=== PATIENT | male | born 1940 | race Caucasian/White ===

== ENCOUNTER 2016-08-17 19:54 | Emergency (ER) | payer MEDICARE ==
[~2016-08-17] VITALS: Ht 182.9 cm; Wt 109.0 kg
[2016-08-17 20:00] VITALS: BP 137/70; PULSE 73; RESP 16; TEMP 97.8; O2SAT 95
[2016-08-17 20:07] VITALS: BP 137/70; PULSE 73; RESP 16; TEMP 97.8; O2SAT 95
[2016-08-17] MEDS ORDERED: LOSA100T PO (20:15)
[2016-08-17] MEDS ORDERED: SIMV20TA PO (20:15)
[2016-08-17] MEDS ORDERED: HYDR25TA5 PO (20:15)
[2016-08-17] MEDS ORDERED: METO50TA PO (20:16)
[2016-08-17] MEDS ORDERED: AMLO5TAB2 PO (20:16)
[2016-08-17] MEDS ORDERED: MORPHINE SULFATE 4 MG/ML INJ IM ONE (20:45)
--- NOTE | 2016-08-17 20:45 | PD ---
HPI Chief Complaint: Musculoskeletal Complaint Time Seen by Provider: 20:45 Travel History International Travel<30 days: No Contact w/Intl Traveler<30days: No Traveled to known affect area: No History of Present Illness HPI Patient is a 76-year-old male presenting with chief complaint of right shoulder and right elbow pain. Possible 5 hours prior to exam the patient slipped and fell while in the shower. She landed on her side on his shoulder has had pain and swelling in the elbow and pain in the shoulder anteriorly since. Pain is worse with movement. He denies severely limited range of motion but does hurt use or move. He denies hitting his head or loss of consciousness. He denies headache, dizziness, syncope, neck pain. He has some intermittent paresthesias in his fingers but denies weakness or sensation loss. He is on aspirin 81 mg daily but denies anticoagulant use. His intermittent low back pain since falling in the midline. He denies any abdominal pain, bowel or bladder dysfunction, saddle anesthesia or weakness or paresthesias in his legs. No attempts at palliation. PFSH Past Medical History Cardiovascular Problems: Yes (2 stents) Diminished Hearing: No Hypertension: Yes Tetanus Vaccination: Never Vaccinated Influenza Vaccination: Yes Social History Alcohol Use: No Tobacco Use: No Substance Use: No Allergies-Medications (Allergen,Severity, Reaction): Coded Allergies: No Known Allergies (Unverified , 08/17/16) Reported Meds & Prescriptions Reported Meds & Active Scripts Active Lortab (Hydrocodone-Acetaminophen) 5-325 Mg Tab 1-2 Tab PO Q6H PRN Reported Metoprolol Tartrate 50 Mg Tab 50 Mg PO DAILY Amlodipine (Amlodipine Besylate) 5 Mg Tab 5 Mg PO DAILY Hydrochlorothiazide 25 Mg Tab 25 Mg PO DAILY Losartan (Losartan Potassium) 100 Mg Tab 100 Mg PO DAILY Simvastatin 20 Mg Tab 20 Mg PO DAILY Review of Systems Except as stated in HPI: all other systems reviewed are Neg Physical Exam Narrative GENERAL: Well-developed and well-nourished adult male in no acute distress. SKIN: Warm and dry. Good turgor without tenting. HEAD: Normocephalic and atraumatic. EYES: PERRL bilaterally, 5mm. EOMI bilaterally. No injection or icterus present. No proptosis. Lids without edema or erythema. ENT: Buccal mucosa pink and moist. Oropharynx free of erythema, tonsillar hypertrophy, masses, swelling, asymmetry and exudates. Uvula midline and airway patent. NECK: Supple, no midline tenderness, crepitus or step-offs. Trachea midline, no JVD. No cervical or facial lymphadenopathy. CARDIOVASCULAR: Regular rate and rhythm without murmurs, rubs, clicks or gallops. Radial and posterior tibial pulses 2+ bilaterally. Brisk capillary refill less than 3 seconds distal tip of all fingers of right hand, equal in time when compared to the left. No pedal edema. RESPIRATORY: Clear to auscultation bilaterally with symmetrical rise and fall, no distress or use of accessory muscles. GASTROINTESTINAL: Non-tender, non-distended. Normal bowel sounds all 4 quadrants. No masses or organomegaly present. MUSCULOSKELETAL: Patient is pain palpation of the right shoulder near the acromioclavicular joint. No clavicle or sternoclavicular tenderness. Lightly reduced range of motion secondary to pain. No increased laxity or squaring off. Right elbow has tenderness in the lateral aspect with a large 7 cm hematoma proximal forearm swelling. Tenderness over the olecranon as well. Patient is moving the elbow with minimal pain however. Normal range of motion of bilateral wrists hands and fingers. Palpation of the mid to low lumbar spine has tenderness without crepitus or step-offs. No sacral tenderness. No crepitus or thrills palpation. Patient freely moving all four extremities spontaneously. Extremities without clubbing, cyanosis, or edema. No obvious deformities. NEUROLOGIC: CN II-XII grossly intact. Awake and alert. Strength 5/5 bilateral shoulder flexion, shoulder extension, elbow flexion, elbow extension. Sensation intact and strength 5/5 over radial, median, and ulnar nerve distributions bilaterally.Sensation intact L2-S2 bilaterally. Strength 5/5 in hip flexion, hip extension, knee flexion, knee extension, plantar flexion, dorsiflexion bilaterally. Bilateral patellar and Achilles DTRs 2+. Downgoing Babinskis bilaterally. Normal speech. PSYCHIATRIC: Appropriate mood and affect; insight and judgment normal. Data Data Last Documented VS Vital Signs Date Time Temp Pulse Resp B/P Pulse Ox O2 Delivery O2 Flow Rate FiO2 08/18/16 00:16 73 18 132/68 96 08/17/16 20:07 97.8 Orders Elbow, Complete (4 Vws) (08/17/16 20:43) Shoulder, Complete (>2vws) (08/17/16 20:43) Ice/Cold Pack (08/17/16 20:43) Spine, Lumbar Comp W/Obliq (08/17/16 ) Morphine Inj (Morphine Inj) (08/17/16 20:45) Ct Thorax/ Chest Wo Iv Contras (08/17/16 ) Morphine Inj (Morphine Inj) (08/17/16 22:15) Complete Blood Count With Diff (08/17/16 22:14) Comprehensive Metabolic Panel (08/17/16 22:14) Prothrombin Time / Inr (Pt) (08/17/16 22:14) Act Partial Throm Time (Ptt) (08/17/16 22:14) Iv Access Insert/Monitor (08/17/16 22:35) Splint Or Brace Apply/Monitor (08/17/16 23:38) Labs Laboratory Tests Test 08/17/16 22:15 White Blood Count 11.6 TH/MM3 Red Blood Count 4.53 MIL/MM3 Hemoglobin 13.7 GM/DL Hematocrit 40.5 % Mean Corpuscular Volume 89.3 FL Mean Corpuscular Hemoglobin 30.3 PG Mean Corpuscular Hemoglobin 33.9 % Concent Red Cell Distribution Width 11.9 % Platelet Count 283 TH/MM3 Mean Platelet Volume 7.3 FL Neutrophils (%) (Auto) 63.0 % Lymphocytes (%) (Auto) 18.2 % Monocytes (%) (Auto) 11.0 % Eosinophils (%) (Auto) 6.9 % Basophils (%) (Auto) 0.9 % Neutrophils # (Auto) 7.3 TH/MM3 Lymphocytes # (Auto) 2.1 TH/MM3 Monocytes # (Auto) 1.3 TH/MM3 Eosinophils # (Auto) 0.8 TH/MM3 Basophils # (Auto) 0.1 TH/MM3 CBC Comment DIFF FINAL Differential Comment Prothrombin Time 10.0 SEC Prothromb Time International 0.9 RATIO Ratio Activated Partial 24.3 SEC Thromboplast Time Sodium Level 142 MEQ/L Potassium Level 3.9 MEQ/L Chloride Level 104 MEQ/L Carbon Dioxide Level 29.8 MEQ/L Anion Gap 8 MEQ/L Blood Urea Nitrogen 33 MG/DL Creatinine 1.50 MG/DL Estimat Glomerular Filtration 46 ML/MIN Rate Random Glucose 130 MG/DL Calcium Level 8.8 MG/DL Total Bilirubin 0.5 MG/DL Aspartate Amino Transf 17 U/L (AST/SGOT) Alanine Aminotransferase 27 U/L (ALT/SGPT) Alkaline Phosphatase 52 U/L Total Protein 6.4 GM/DL Albumin 3.5 GM/DL MDM Medical Decision Making Medical Screen Exam Complete: Yes Emergency Medical Condition: Yes Differential Diagnosis Elbow fracture versus hematoma versus compartment syndrome versus elbow sprain versus contusion versus shoulder sprain versus shoulder fracture versus shoulder dislocation versus lumbar fracture versus low-back strain Narrative Course Patient is a 76-year-old male had a mechanical fall 5 hours prior with right shoulder, elbow and low back pain. The right elbow has a large hematoma and proximal forearm swelling. He has some paresthesias in the fingers intermittently but is neurovascularly intact. Capillary refill is brisk and equal to the left upper extremity. Patient was given ice, morphine ordered x- ray of the shoulder, elbow and lumbar spine. Patient mild increase in the elbow swelling which was never circumferential. Compartments still soft knee is still neurovascular intact. Arm was elevated and place in finger traps to help with swelling. X-ray shows soft tissue swelling with no evidence of fracture. Lumbar spine shows degenerative changes only with no signs of acute fracture. 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 The patient had tetanus in this area specifically on initial exam patient of the ridge and lateral aspect of the right scapula reveals some point tenderness. I spoke with Dr. Dejesus who also evaluated this patient and suggest a CT of the chest in accordance with radiology recommendation and CBC, metabolic panel and coags. Patient was given morphine [address] pending and signed out to Dr. Dejesus. Diagnosis Primary Impression: Contusion of elbow and forearm Qualified Code: S50.11XA - Contusion of elbow and forearm, right, initial encounter Additional Impressions: Low back strain Qualified Code: S39.012A - Low back strain, initial encounter Shoulder sprain Qualified Code: S43.401A - Sprain of right shoulder, unspecified shoulder sprain type, initial encounter Patient Instructions: Contusion in Adults (ED), General Instructions, Low Back Strain (ED), Shoulder Sprain (ED) Additional Instructions: Take medications as prescribed Your medications may cause drowsiness. Do not take with alcohol or sedatives. Do not operate a motor vehicle or heavy machinery while on medication. Apply ice every 1 to 2 hours as needed for pain Avoid maneuvers that aggravate pain Keep shoulder sling and right elbow Valentin bandage on while being active or using extremity Elevate when at rest Be aware that may take several weeks for sprains to heal fully Follow-up with PCP or orthopedist in 2-3 days Return to the ED for any acute worsening of symptoms Med/Other Pt SpecificInfo: Prescription(s) given Scripts Hydrocodone-Acetaminophen (Lortab)5-325 Mg Tab1-2 Tab PO Q6H PRN (PAIN SCALE 6 TO 10) #20 TAB Ref 0 Prov:Kurtis Dejesus MD 08/18/16 Condition: Stable Tai Bhakta III Aug 17, 2016 20:45
--- NOTE | 2016-08-17 21:54 | RADHPO ---
EXAM DATE/TIME: 08/17/2016 21:25 [facility] COMPARISON: No previous studies available for comparison. INDICATIONS : Patient states he fell today, right elbow pain and bruising. MEDICAL HISTORY : None. SURGICAL HISTORY : None. ENCOUNTER: Initial ACUITY: 1 day PAIN SCORE: 6/10 LOCATION: Right elbow FINDINGS: There is marked soft-tissue swelling of the lateral epicondyle without fracture. CONCLUSION: Soft-tissue swelling without fracture. David Kulkarni MD FACR on August 17, 2016 at 21:51 Board Certified Radiologist. This report was verified electronically.
--- NOTE | 2016-08-17 21:54 | RADHPO ---
EXAM DATE/TIME: 08/17/2016 21:29 [facility] COMPARISON: No previous studies available for comparison. INDICATIONS : Patient states he fell today, right shoulder pain. MEDICAL HISTORY : None. SURGICAL HISTORY : None. ENCOUNTER: Initial ACUITY: 1 day PAIN SCORE: 7/10 LOCATION: Right Shoulder FINDINGS: The neck of the scapula is abnormal with bony sclerosis. Subacute fracture or other bony abnormaliti es cannot be excluded. CT scan is suggested. CONCLUSION: Abnormal scapula as described above. David Kulkarni MD FACR on August 17, 2016 at 21:51 Board Certified Radiologist. This report was verified electronically.
--- NOTE | 2016-08-17 21:59 | RADHPO ---
EXAM DATE/TIME: 08/17/2016 21:35 [facility] COMPARISON: No previous studies available for comparison. INDICATIONS : Patient states he fell today, lower back pain. MEDICAL HISTORY : None. SURGICAL HISTORY : None. ENCOUNTER: Initial ACUITY: 1 day PAIN SCORE: 6/10 LOCATION: Bilateral lumbar FINDINGS: There is loss of disc space height at L1-2 and L2-3 with vacuum changes. There is mild scoliosis pre sent. There is minimal loss of vertebral body height at L2. Moderate degenerative changes are present in the facets. CONCLUSION: Degenerative changes as described above. I do not see evidence for an acute compress ion. MRI could be used to exclude such if the patient is clinically symptomatic. David Kulkarni MD FACR on August 17, 2016 at 21:54 Board Certified Radiologist. This report was verified electronically.
[2016-08-17] MEDS ORDERED: MORPHINE SULFATE 4 MG/ML INJ IV PUSH ONE (22:15)
[2016-08-17 22:26] LABS: AUTOMATED NEUTROPHIL # 7.3 TH/MM3 (1.8-7.7); BASOPHIL # 0.1 TH/MM3 (0-0.2); BASOPHIL % 0.9 % (0.0-2.0); EOSINOPHIL # 0.8 TH/MM3 (0-0.4); EOSINOPHIL % 6.9 % (0.0-4.0); HEMATOCRIT 40.5 % (39.0-51.0); LYMPH % 18.2 % (9.0-44.0); LYMPHOCYTE # 2.1 TH/MM3 (1.0-4.8); MEAN CELL VOLUME 89.3 FL (80.0-100.0); MEAN CORPUSCULAR HEMOGLOBIN 30.3 PG (27.0-34.0); MEAN CORPUSCULAR HGB CONC 33.9 % (32.0-36.0); PLATELET COUNT 283 TH/MM3 (150-450); RED BLOOD COUNT 4.53 MIL/MM3 (4.50-5.90); RED CELL DISTRIBUTION WIDTH 11.9 % (11.6-17.2); WHITE BLOOD COUNT 11.6 TH/MM3 (4.0-11.0)
[2016-08-17 22:32] LABS: CHLORIDE 104 MEQ/L (98-107); POTASSIUM 3.9 MEQ/L (3.5-5.1); SODIUM (NA) 142 MEQ/L (136-145)
[2016-08-17 22:35] LABS: ANION GAP 8 MEQ/L (5-15); BICARBONATE 29.8 MEQ/L (21.0-32.0)
[2016-08-17 22:36] LABS: BLOOD UREA NITROGEN 33 MG/DL (7-18)
[2016-08-17 22:37] LABS: HEMO FLAGS DIFF FINAL
[2016-08-17 22:38] LABS: ALT (GPT) 27 U/L (12-78); APTT (PATIENT) 24.3 SEC (24.3-30.1); AST (GOT) 17 U/L (15-37); INTERNATIONAL NORMALIZED RATIO 0.9 RATIO
[2016-08-17 22:39] LABS: GLOMERULAR FILTRATION RATE 46 ML/MIN (>89)
[2016-08-17 22:40] LABS: TOTAL BILIRUBIN ADULT 0.5 MG/DL (0.2-1.0)
[2016-08-17 22:41] LABS: ALKALINE PHOSPHATASE 52 U/L (45-117)
--- NOTE | 2016-08-17 23:19 | PD ---
Data Data Last Documented VS Vital Signs Date Time Temp Pulse Resp B/P Pulse Ox O2 Delivery O2 Flow Rate FiO2 08/18/16 00:16 73 18 132/68 96 08/17/16 20:07 97.8 Orders Elbow, Complete (4 Vws) (08/17/16 20:43) Shoulder, Complete (>2vws) (08/17/16 20:43) Ice/Cold Pack (08/17/16 20:43) Spine, Lumbar Comp W/Obliq (08/17/16 ) Morphine Inj (Morphine Inj) (08/17/16 20:45) Ct Thorax/ Chest Wo Iv Contras (08/17/16 ) Morphine Inj (Morphine Inj) (08/17/16 22:15) Complete Blood Count With Diff (08/17/16 22:14) Comprehensive Metabolic Panel (08/17/16 22:14) Prothrombin Time / Inr (Pt) (08/17/16 22:14) Act Partial Throm Time (Ptt) (08/17/16 22:14) Iv Access Insert/Monitor (08/17/16 22:35) Splint Or Brace Apply/Monitor (08/17/16 23:38) Labs Laboratory Tests Test 08/17/16 22:15 White Blood Count 11.6 TH/MM3 Red Blood Count 4.53 MIL/MM3 Hemoglobin 13.7 GM/DL Hematocrit 40.5 % Mean Corpuscular Volume 89.3 FL Mean Corpuscular Hemoglobin 30.3 PG Mean Corpuscular Hemoglobin 33.9 % Concent Red Cell Distribution Width 11.9 % Platelet Count 283 TH/MM3 Mean Platelet Volume 7.3 FL Neutrophils (%) (Auto) 63.0 % Lymphocytes (%) (Auto) 18.2 % Monocytes (%) (Auto) 11.0 % Eosinophils (%) (Auto) 6.9 % Basophils (%) (Auto) 0.9 % Neutrophils # (Auto) 7.3 TH/MM3 Lymphocytes # (Auto) 2.1 TH/MM3 Monocytes # (Auto) 1.3 TH/MM3 Eosinophils # (Auto) 0.8 TH/MM3 Basophils # (Auto) 0.1 TH/MM3 CBC Comment DIFF FINAL Differential Comment Prothrombin Time 10.0 SEC Prothromb Time International 0.9 RATIO Ratio Activated Partial 24.3 SEC Thromboplast Time Sodium Level 142 MEQ/L Potassium Level 3.9 MEQ/L Chloride Level 104 MEQ/L Carbon Dioxide Level 29.8 MEQ/L Anion Gap 8 MEQ/L Blood Urea Nitrogen 33 MG/DL Creatinine 1.50 MG/DL Estimat Glomerular Filtration 46 ML/MIN Rate Random Glucose 130 MG/DL Calcium Level 8.8 MG/DL Total Bilirubin 0.5 MG/DL Aspartate Amino Transf 17 U/L (AST/SGOT) Alanine Aminotransferase 27 U/L (ALT/SGPT) Alkaline Phosphatase 52 U/L Total Protein 6.4 GM/DL Albumin 3.5 GM/DL [facility] Medical Record Reviewed: Yes Supervised Visit with MATIAS: Yes Narrative Course CBC & BMP Diagram 08/17/16 22:15 LFTs normal Coags 10.0 / 0.9 / 24.3 Last 24 hours Impressions Shoulder X-Ray 08/17/162042 Signed Impressions: Service Date/Time: August 21:29 - CONCLUSION: Abnormal scapula as described above. David Kulkarni MD FACR Elbow X-Ray 08/17/162042 Signed Impressions: Service Date/Time: August 21:25 - CONCLUSION: Soft- tissue swelling without fracture. David Kulkarni MD FACR Lumbar Spine X-Ray 08/17/16 0000 Signed Impressions: Service Date/Time: August 21:35 - CONCLUSION: Degenerative changes as described above. I do not see evidence for an acute compression. MRI could be used to exclude such if the patient is clinically symptomatic. David Kulkarni MD FACR Chest CT 08/17/16 0000 Signed Impressions: Service Date/Time: August 22:48 - CONCLUSION: 1. No evidence of acute thoracic abnormality. No masses are identified. There is no evidence of acute fracture. 2. Cholelithiasis 3. Probable goiter left lobe of the thyroid. Radionuclide imaging is recommended for further evaluation if clinically indicated. Durga Milian MD Thyroid goiter/mass d/w patient. Follow up plans discussed. Referral provided to the general medicine physician, Dr. Cornelius, for more expeditious follow-up of probable left thyroid goiter versus thyroid mass. CT shows no acute fracture or intrathoracic trauma. Pt reassured. Precautions for Lortab discussed. Pt has verbalized understanding and is ready for discharge. Diagnosis Primary Impression: Contusion of elbow and forearm Qualified Code: S50.11XA - Contusion of elbow and forearm, right, initial encounter Additional Impressions: Shoulder sprain Qualified Code: S43.401A - Sprain of right shoulder, unspecified shoulder sprain type, initial encounter Low back strain Qualified Code: S39.012A - Low back strain, initial encounter Thyroid mass of unclear etiology Referrals: Mason Horton Jr., MD call for appointment Alhaji Cornelius MD 2 days Doctor for thyroid follow up Patient Instructions: General Instructions, Low Back Strain (ED), Contusion in Adults (ED), Shoulder Sprain (ED) Additional Instruction: Take medications as prescribed Your medications may cause drowsiness. Do not take with alcohol or sedatives. Do not operate a motor vehicle or heavy machinery while on medication. Apply ice every 1 to 2 hours as needed for pain Avoid maneuvers that aggravate pain Keep shoulder sling and right elbow Valentin bandage on while being active or using extremity Elevate when at rest Be aware that may take several weeks for sprains to heal fully Follow-up with PCP or orthopedist in 2-3 days Return to the ED for any acute worsening of symptoms Scripts Hydrocodone-Acetaminophen (Lortab)5-325 Mg Tab1-2 Tab PO Q6H PRN (PAIN SCALE 6 TO 10) #20 TAB Ref 0 Prov:Kurtis Dejesus MD 08/18/16 Disposition: 01 DISCHARGE HOME Condition: Stable Kurtis Dejesus MD Aug 17, 2016 23:19
--- NOTE | 2016-08-17 23:25 | RADHPO ---
EXAM DATE/TIME: 08/17/2016 22:48 [facility] COMPARISON: No previous studies available for comparison. INDICATIONS : Trauma. Fall. Right scapular pain. RADIATION DOSE: 21.05 CTDIvol (mGy) MEDICAL HISTORY : Hypertension. SURGICAL HISTORY : Coronary artery stent. ENCOUNTER: Initial ACUITY: 1 day PAIN SCALE: 6/10 LOCATION: Right scapular. TECHNIQUE: Volumetric scanning of the chest was performed. Using automated exposure control and adjustment of t he mA and/or kV according to patient size, radiation dose was kept as low as reasonably achievable to obtain optimal diagnostic quality images. FINDINGS: There is scarring in both lung bases. No pulmonary nodules are identified. No pleural effusions are i dentified. Examination of the mediastinum demonstrates no abnormally enlarged lymph nodes by CT criteria. No axi llary or hilar abnormalities are identified. Coronary artery calcifications are present. There is a m arkedly enlarged left lobe of the thyroid gland displacing the trachea to the right and 5.5 x 3.7 x 7 .8 CM. Right lobe appears normal. Radionuclide imaging is recommended for further evaluation if clini evita indicated. There is a single stone within the gallbladder without wall thickening or pericholecystic fluid measu ring 6 mm containing gas. Multiple calcified granulomas are present in the spleen. The adrenal glands are unremarkable. There is no evidence of acute fracture. CONCLUSION: 1. No evidence of acute thoracic abnormality. No masses are identified. There is no evidence of acute fracture. 2. Cholelithiasis 3. Probable goiter left lobe of the thyroid. Radionuclide imaging is recommended for further evaluati on if clinically indicated. Durga Milian MD on August 17, 2016 at 23:18 Board Certified Radiologist. This report was verified electronically.
[2016-08-18] MEDS ORDERED: HYDR-3533 PO
[2016-08-18 00:16] VITALS: BP 132/68
== END 2016-08-18 00:16 | disposition home or self-care (01) ==
LOC: PHEFT 19:54
DX: S50.11XA Contusion of right forearm, initial encounter (principal); I10 Essential (primary) hypertension; S39.012A Strain of muscle, fascia and tendon of lower back, initial encounter; S43.401A Unspecified sprain of right shoulder joint, initial encounter; W01.0XXA Fall on same level from slipping, tripping and stumbling without subsequent striking against object, initial encounter; Y93.E1 Activity, personal bathing and showering; Y92.002 Bathroom of unspecified non-institutional (private) residence as the place of occurrence of the external cause
CPT/HCPCS: 71250; 72110; 73030; 73080; 80053; 85025; 85610; 85730; 96372; 96374; 99284; J2270